=== PATIENT | male | born 1975 | race American Indian/Alaskan Native ===

== ENCOUNTER 2016-10-18 17:50 | Emergency (ER) | payer OTHER ==
[2016-10-18 19:31] VITALS: BP 150/101
[2016-10-18 20:49] LABS: Basophils % (Auto) 0.6 % (0.0-1.8); Eosinophils % (Auto) 2.7 % (0.0-4.3); Hematocrit 38.8 % (35.5-45.6); Hemoglobin 12.1 gm/dl (11.8-15.2); Mean Corpuscular HGB Conc 31 % (32-34); Mean Corpuscular Hemoglobin 26 pg (28-32); Mean Corpuscular Volume 84 fl (84-94); Platelet Count 313 K/mm3 (140-440); Red Blood Count 4.63 M/mm3 (3.65-5.03); Red Cell Distribution Width 13.6 % (13.2-15.2); White Blood Count 5.9 K/mm3 (4.5-11.0)
[2016-10-18 21:04] LABS: Anion Gap 17 mmol/L; Blood Urea Nitrogen 8 mg/dL (9-20); Calcium 9.3 mg/dL (8.4-10.2); Carbon Dioxide 28 mmol/L (22-30); Chloride 99.9 mmol/L (98-107); Glucose 81 mg/dL (75-100); Potassium 3.8 mmol/L (3.6-5.0); Sodium 141 mmol/L (137-145)
--- NOTE | 2016-10-18 21:08 | Emergency Department Report ---
ED Extremity Problem HPI - General Chief complaint: Extremity Problem,Nontraumatic Stated complaint: SEVERE GOUT IN RIGHT FOOT Time Seen by Provider: 10/18/16 21:06 Source: patient Mode of arrival: Ambulatory Limitations: No Limitations - History of Present Illness Initial comments: Patient here reports that his right foot has been painful for 1 week with swelling. He said similar history with gout flare. Denies any trauma. Denies any numbness or tingling. Denies any fever or chills. Blood pressure is 150/ 101 and he says blood pressure usually goes up pain. His pain is 5 out of 10 to right foot and he said he take [id number] medication without any help. He said he usually get diclofenac which she is out of and colcrys for pain MD Complaint: extremity pain, extremity swelling Onset/Timin -: week(s) Location: right, lower extremity History of Same: Yes -: Yes arthralgia Radiation: none Severity scale (0 -10): 5 Quality: aching (throbbing) Consistency: constant Improves with: immobilization Worsens with: weight bearing, walking, palpation Associated Symptoms: arthralgias. denies: chest pain, shortness of breath, fever, myalgias, rash - Related Data Previous Rx's Medication Instructions Recorded Last Taken Type HYDROcodone/APAP 5-325 [[place] 1 each PO Q6HR PRN #10 tablet 11/16/14 Unknown Rx 5-325 mg TAB] Colchicine 0.6 mg PO BID PRN #20 capsule 10/18/16 Unknown Rx Indomethacin Sr (Nf) [Indocin Sr 75 mg PO Q12HR PRN #30 capsule.er 10/18/16 Unknown Rx (Nf)] predniSONE [Deltasone] 40 mg PO QDAY #10 tab 10/18/16 Unknown Rx Allergies Allergy/AdvReac Type Severity Reaction Status Date / Time No Known Allergies Allergy Unverified 10/10/14 13:47 ED Review of Systems ROS: Stated complaint: SEVERE GOUT IN RIGHT FOOT Other details as noted in HPI Comment: All other systems reviewed and negative Constitutional: denies: chills, fever Respiratory: no symptoms reported Cardiovascular: denies: chest pain, palpitations, edema, syncope Gastrointestinal: denies: abdominal pain, nausea, vomiting Musculoskeletal: arthralgia (right foot pain and swelling anteriorly). denies: back pain Skin: denies: rash Neurological: denies: headache, numbness, paresthesias, confusion, abnormal gait , vertigo ED Past Medical Hx - Past Medical History Previous Medical History?: Yes Additional medical history: Gout - Surgical History Past Surgical History?: Yes Additional Surgical History: finger. Cyst - Family History Family history: hypertension - Social History Smoking Status: Never Smoker Substance Use Type: None - Medications Home Medications: Home Medications Medication Instructions Recorded Confirmed Last Taken Type HYDROcodone/APAP 5-325 [[place] 1 each PO Q6HR PRN #10 tablet 11/16/14 Unknown Rx 5-325 mg TAB] Colchicine 0.6 mg PO BID PRN #20 capsule 10/18/16 Unknown Rx Indomethacin Sr (Nf) [Indocin Sr 75 mg PO Q12HR PRN #30 capsule.er 10/18/16 Unknown Rx (Nf)] predniSONE [Deltasone] 40 mg PO QDAY #10 tab 10/18/16 Unknown Rx ED Physical Exam - General Limitations: No Limitations General appearance: alert, in no apparent distress - Head Head exam: Present: atraumatic, normocephalic, normal inspection - Eye Eye exam: Present: normal appearance, PERRL, EOMI Pupils: Present: normal accommodation - Respiratory Respiratory exam: Present: normal lung sounds bilaterally. Absent: respiratory distress, chest wall tenderness - Cardiovascular Cardiovascular Exam: Present: regular rate, normal rhythm, normal heart sounds - GI/Abdominal GI/Abdominal exam: Present: soft, normal bowel sounds. Absent: distended, tenderness, guarding, rebound, rigid - Expanded Lower Extremity Exam Right Hip exam: Present: normal inspection, full ROM, pelvic stability. Absent: tenderness, swelling, abrasion, laceration, ecchymosis, deformity, crepidus, dislocation, erythema, external rotation, internal rotation, shortening Upper Leg exam: Present: normal inspection, full ROM. Absent: tenderness, swelling, abrasion, laceration, ecchymosis, deformity, crepidus, dislocation, erythema Knee exam: Present: normal inspection, full ROM, full knee extension. Absent: tenderness, swelling, abrasion, laceration, ecchymosis, deformity, crepidus, dislocation, erythema, effusion, pain w/ pronation/supination, posterior draw sign, pain/laxity with valgus, pain/laxity with varus Lower Leg exam: Present: normal inspection, full ROM. Absent: tenderness, swelling, abrasion, laceration, ecchymosis, deformity, crepidus, dislocation, erythema, palpable cord, Chuy's sign Ankle exam: Present: normal inspection, full ROM. Absent: tenderness, swelling , abrasion, laceration, ecchymosis, deformity, crepidus, dislocation, erythema, anterior draw sign Foot/Toe exam: Present: full ROM (full range of motion to right foot but he said it's painful with dorsiflexion and plantar flexion), tenderness (tender to palpate right foot), swelling (swelling to right foot). Absent: abrasion, laceration, ecchymosis, deformity, crepidus, dislocation, erythema, amputation, puncture wound, foreign body, calcaneal tenderness, tenderness at base of 5th metatarsal, nail avulsion, subungual hematoma Neuro vascular tendon exam: Present: no vascular compromise, significant pain with passive ROM of distal joint. Absent: pulse deficit, abnormal cap refill, motor deficit, sensory deficit, tendon deficit, extremity cold to touch, pallor , abnormal 2-point discrimination, decreased fine/light touch, foot drop, peroneal nerve deficit Gait: Positive: observed and limited by pain - Back Exam Back exam: Present: normal inspection, full ROM. Absent: tenderness, CVA tenderness (R), CVA tenderness (L), muscle spasm, paraspinal tenderness, vertebral tenderness, rash noted - Neurological Exam Neurological exam: Present: alert, oriented X3, abnormal gait (patient with limping to right foot due to gout flareup), reflexes normal - Psychiatric Psychiatric exam: Present: normal affect, normal mood - Skin Skin exam: Present: warm, dry, intact. Absent: normal color, rash ED Course Vital Signs 10/18/16 19:25 Temperature 98.4 F Pulse Rate 69 Respiratory 20 Rate Blood Pressure 150/101 [Right] O2 Sat by Pulse 100 Oximetry - Reevaluation(s) Reevaluation #1: 10/18/16 22:54 Patient given Toradol 60 mg and Decadron 10 mg IM. He was also given Colcrys 1.2 mg in emergency room for gout flareup. He reports the pain is better. ED Medical Decision Making - Lab Data Result diagrams: 10/18/16 20:26 10/18/16 20:26 Lab Results 10/18/16 10/18/16 Range/Units 20:26 20:26 WBC 5.9 (4.5-11.0) K/mm3 RBC 4.63 (3.65-5.03) M/mm3 Hgb 12.1 (11.8-15.2) gm/dl Hct 38.8 (35.5-45.6) % MCV 84 (84-94) fl MCH 26 L (28-32) pg MCHC 31 L (32-34) % RDW 13.6 (13.2-15.2) % Plt Count 313 (140-440) K/mm3 Lymph % (Auto) 35.2 H (13.4-35.0) % [place] % (Auto) 7.0 (0.0-7.3) % Eos % (Auto) 2.7 (0.0-4.3) % Baso % (Auto) 0.6 (0.0-1.8) % Lymph # 2.1 (1.2-5.4) K/mm3 [place] # 0.4 (0.0-0.8) K/mm3 Eos # 0.2 (0.0-0.4) K/mm3 Baso # 0.0 (0.0-0.1) K/mm3 Seg Neutrophils % 54.5 (40.0-70.0) % Seg Neutrophils # 3.2 (1.8-7.7) K/mm3 Sodium 141 (137-145) mmol/L Potassium 3.8 (3.6-5.0) mmol/L Chloride 99.9 (98-107) mmol/L Carbon Dioxide 28 (22-30) mmol/L Anion Gap 17 mmol/L BUN 8 L (9-20) mg/dL Creatinine 0.8 (0.8-1.5) mg/dL Estimated GFR > 60 ml/min BUN/Creatinine Ratio 10.00 % Glucose 81 (75-100) mg/dL Uric Acid 8.0 H (3.5-7.6) mg/dL Calcium 9.3 (8.4-10.2) mg/dL - Medical Decision Making ED course: I treated with Toradol 60 mg and Decadron 10 mg IM and Colcrys 1.2 mg po in emergency room for gout flareup. The patient that he has gout flareup and that his uric acid level was at 8 which was elevated. Him that he needs to follow a diet as discussed. He voiced understanding. Patient discharged home with prescription for diclofenac, prednisone and Colcrys Critical care attestation.: If time is entered above; I have spent that time in minutes in the direct care of this critically ill patient, excluding procedure time. ED Disposition Clinical Impression: Arthralgia of foot, right Gout attack Qualifiers: Gout site: foot Gout etiology: unspecified cause Laterality: right Qualified Code(s): M10.9 - Gout, unspecified Disposition: DISCHARGED TO HOME OR SELFCARE Is pt being admited?: No Does the pt Need Aspirin: No Condition: Stable Instructions: Arthralgia (ED), Acute Gouty Arthritis (ED), Self-Care Measures with a Chronic Disease (ED) Additional Instructions: take medication as instructed. Primary care physician in 3 days and if he does not have one please follow-up with outside Medical Center follow instructions on low Diet to avoid gout attack. Prescriptions: Colchicine 0.6 mg PO BID PRN #20 capsule PRN Reason: GOUT Indomethacin Sr (Nf) [Indocin Sr (Nf)] 75 mg PO Q12HR PRN #30 capsule.er PRN Reason: Pain predniSONE [Deltasone] 40 mg PO QDAY #10 tab Referrals: EMILIANO PRADO MD [Primary Care Provider] - 3-5 Days Forms: Accompanied Note, Work/School Release Form(ED)
[2016-10-18] MEDS ORDERED: COLCRYS PO ONE (21:30)
[2016-10-18] MEDS ORDERED: TORADOL IM ONE (21:30)
[2016-10-18] MEDS ORDERED: DECADRON IM ONE (21:30)
== END 2016-10-18 23:26 | disposition home or self-care (01) ==
LOC: ED 17:50
DX: M10.9 Gout, unspecified (principal); M79.671 Pain in right foot
CPT/HCPCS: 36415; 80048; 84550; 85025; 96372; 99283; J1100; J1885